=== PATIENT | female | born 1995 | race Caucasian/White ===

== ENCOUNTER → 2020-04-13 | Outpatient (CLI) | payer OTHER ==
[~2020-04-13] MED LIST: DOCUSATE SODIU100 MG PO; IBUPROFEN600 MG PO
== END ==
LOC: GENOP 14:14
DX: O98.513 Other viral diseases complicating pregnancy, third trimester (principal); U07.1 COVID-19; Z3A.37 37 weeks gestation of pregnancy
CPT/HCPCS: 59025

== ENCOUNTER 2020-05-05 06:19 | Inpatient (IN) | payer OTHER ==
[2020-05-05 07:24] LABS: HEMOGLOBIN 11.7 gm/dl (12.3-15.3); RED BLOOD COUNT 4.24 M/UL (4.00-5.10); WHITE BLOOD COUNT 8.1 K/UL (4.5-11.0)
[2020-05-06 05:00] LABS: HEMOGLOBIN 10.1 gm/dl (12.3-15.3)
[2020-05-06] MEDS ORDERED: DOCUSATE SODIU100 MG PO (10:47)
[2020-05-06] MEDS ORDERED: IBUPROFEN600 MG PO (10:47)
== END 2020-05-06 17:30 | disposition home or self-care (01) | DRG 805 ==
LOC: OB 06:19
PROVIDERS: Obstetrics & Gynecology; ADMIT Obstetrics & Gynecology
PROC: 10E0XZZ Delivery of Products of Conception, External Approach (ICD-10-PCS; principal; 2020-05-05)
PROC: 0KQM0ZZ Repair Perineum Muscle, Open Approach (ICD-10-PCS; 2020-05-05)
PROC: 10907ZC Drainage of Amniotic Fluid, Therapeutic from Products of Conception, Via Natural or Artificial Opening (ICD-10-PCS; 2020-05-05)
PROC: 3E033VJ Introduction of Other Hormone into Peripheral Vein, Percutaneous Approach (ICD-10-PCS; 2020-05-05)
DX: O99.284 Endocrine, nutritional and metabolic diseases complicating childbirth (principal); U07.1 COVID-19; Z37.0 Single live birth; O36.0930 Maternal care for other rhesus isoimmunization, third trimester, not applicable or unspecified; O98.52 Other viral diseases complicating childbirth; E03.9 Hypothyroidism, unspecified; O69.81X0 Labor and delivery complicated by cord around neck, without compression, not applicable or unspecified; O70.1 Second degree perineal laceration during delivery; O99.344 Other mental disorders complicating childbirth; F41.9 Anxiety disorder, unspecified; F32.9 Major depressive disorder, single episode, unspecified; Z28.21 Immunization not carried out because of patient refusal; Z3A.40 40 weeks gestation of pregnancy
CPT/HCPCS: 36415; 51702; 80307; 81001; 82800; 85014; 85018; 85025; 85461; 86850; 86900; 86901; J7120; U0002